=== PATIENT | female | born 1950 | race Caucasian/White ===

== ENCOUNTER 2016-05-15 05:54 | Day surgery (SDC) | payer OTHER ==
[~2016-05-15 05:54] MED LIST: IV START KIT ONE; LACTATED RINGERS 1,000 ML ONE
[2016-05-15] MEDS ORDERED: CEFAZOLIN SODIUM 2 GRAM PREMIX 100 ML IV ONE (06:00)
[2016-05-15] MEDS ORDERED: LIDOCAINE 1% 2 ML VIAL ID PRN (06:00)
[2016-05-15] MEDS ORDERED: LACTATED RINGERS 1,000 ML IV SCH ×2 (06:00→07:45)
[2016-05-15] MEDS ORDERED: CEFAZOLIN SODIUM 2 GRAM DUPLEX 2 G in Premix (D5W) 50 ml 1 EACH IV PRN (06:00)
[2016-05-15] MEDS ORDERED: PROPOFOL 40 ML IV ONE (06:47)
[2016-05-15] MEDS ORDERED: KETAMINE HCL UD SYRINGE 100 MG/2 ML IV ONE (06:47)
[2016-05-15] MEDS ORDERED: MIDAZOLAM HCL 5 MG/5 ML VIAL ONE (06:47)
[2016-05-15] MEDS ORDERED: MORPHINE SULFATE (DURAMORPH) 1 MG/ML 10ML AMP ONE (06:57)
[2016-05-15] MEDS ORDERED: SPINAL PROCEDURAL TRAY 1 EACH ONE (06:59)
[2016-05-15] MEDS ORDERED: BUPIVACAINE 0.75% SPINAL AMPUL 2 ML ONE (06:59)
[2016-05-15] MEDS ORDERED: SULFANILAMIDE 15% CREAM 20 APPLIC/120 G TUBE ONE (07:02)
[2016-05-15] MEDS ORDERED: FENTANYL 100 MCG/2 ML VIAL IV PRN (07:33)
[2016-05-15] MEDS ORDERED: ONDANSETRON 4 MG/2ML 2 ML VIAL IV PRN ×2 (07:33)
[2016-05-15] MEDS ORDERED: NALOXONE HCL 0.4 MG/ML VIAL IV PRN ×2 (07:33→07:34)
[2016-05-15] MEDS ORDERED: ATROPINE SULFATE 0.4 MG/1 ML VIAL IV PRN (07:33)
[2016-05-15] MEDS ORDERED: HYDROMORPHONE HCL 1 MG/ML SYRINGE IV PRN (07:34)
[2016-05-15] MEDS ORDERED: EPHEDRINE SULFATE 50 MG/ML 1ML VIAL IV PRN (07:34)
[2016-05-15] MEDS ORDERED: OXYCODONE/ACETAMINOPHEN 5/325 MG TABLET PO PRN (07:34)
[2016-05-15] MEDS ORDERED: KETOROLAC TROMETHAMINE 30 MG/ML 1 ML VIAL IV PRN (07:34)
[2016-05-15] MEDS ORDERED: EPHEDRINE SULFATE UD SYR 25 MG 25 MG/5 ML SYRINGE IV ONE ×2 (07:39→08:22)
[2016-05-15] MEDS ORDERED: PROPOFOL 20 ML IV ONE (08:30)
[2016-05-15] MEDS ORDERED: KETOROLAC TROMETHAMINE 30 MG/ML 1 ML VIAL ONE (08:32)
[2016-05-15] MEDS ORDERED: ESTROGENS,CONJUGATED CREAM 30 G/TUBE VG ONE (08:33)
[2016-05-15] MEDS ORDERED: BLISTEX LIPSTICK 1 EACH TP PRN (09:27)
[2016-05-15] MEDS ORDERED: MENTHOL/CETYLPYRD 1 EACH LOZENGE PO PRN (09:27)
[2016-05-15] MEDS ORDERED: PROMETHAZINE HCL 25 MG TABLET PO PRN (09:27)
[2016-05-15] MEDS ORDERED: DIPHENHYDRAMINE HCL 50 MG/1 ML VIAL IV PRN (09:27)
[2016-05-15] MEDS ORDERED: MAGNESIUM HYDROXIDE/AL HYDROX 30 ML UDCUP PO PRN (09:27)
[2016-05-15] MEDS ORDERED: MAG HYDROX/AL HYDROX/SIMETH 30 ML UDCUP PO PRN (09:27)
[2016-05-15] MEDS ORDERED: DOCUSATE SODIUM 100 MG CAPSULE PO PRN (09:27)
[2016-05-15 10:05] VITALS: BMI 31.0
[2016-05-15] MEDS ORDERED: PUMP TUBING ONE (10:06)
--- NOTE | 2016-05-15 10:11 | OP ---
Blanca Paola DATE OF SURGERY: 05/15/2016 SURGEON: Justin Gomez M.D. AWNING ERECTOR SURGEON: Dr. Justin Burger. PREOPERATIVE DIAGNOSIS: Uterovaginal prolapse complete. POSTOPERATIVE DIAGNOSIS: Uterovaginal prolapse complete. OPERATION: Vaginal hysterectomy and anterior and posterior colporrhaphy. ANESTHESIA: Spinal. FINDINGS: The cervix was protruding through the vaginal opening. There was a cystocele and rectocele noted. TECHNICAL PROCEDURE: After induction of satisfactory spinal anesthesia the patient was placed in the supine lithotomy position and prepped and draped in the usual fashion. A weighted speculum was placed in the vagina and the cervix grasped with a double tooth tenaculum. The cul-de-sac was entered posteriorly using Marin scissors and the vaginal cuff incised circumferentially at this level using a knife. The bladder was advanced cephalad and the vesicouterine peritoneum identified and incised with the Marin scissors and a [place] retractor placed anteriorly. The left uterosacral ligament was clamped with a Sivakumar clamp, divided, and suture ligated with 0 Vicryl. The same procedure was repeated on the right. The right cardinal ligament was clamped with a Sivakumar clamp, divided, and suture ligated with 0 Vicryl. The same procedure was repeated on the left. The left uterine artery was clamped with a Sivakumar clamp, divided and sutured ligated with 0 Vicryl. The same procedure was repeated on the right. The right uterine artery was clamped with a Sivakumar clamp, divided, and suture ligated with 0 Vicryl. The same procedure was repeated on the left. The left round ligament was clamped with a Sivakumar clamp, divided , and suture ligated with 0 Vicryl. The same procedure was repeated on the right. The uteroovarian ligament and Fallopian tube were then crossed clamped with a Sivakumar and divided. The same procedure was repeated on the left thus removing the uterus. The pedicles thus created were sutured ligated with 0 Vicryl. When hemostasis in the pedicles was assured the peritoneum was closed with a purse string suture of 0 Vicryl. Attention was then turned to the anterior colporrhaphy. The anterior vaginal mucosa was grasped between two Allis forceps and incised in the midline and undermined in the midline to within 4 cm of the distal urethral meatus. The mucosa was from the underlying tissue using sharp and blunt dissection. The pubovesical fascia was then plicated under the bladder using interrupted vertical mattress sutures of 0 Vicryl. The excess vaginal mucosa was trimmed away and the mucosa closed with interrupted simple stitches of 3-0 Vicryl. The vaginal cuff was then closed from side to side using interrupted figure of eight sutures of 0 Vicryl. Attention was then turned to the posterior colporrhaphy. A transverse piece of mucosa was excised from the vaginal fourchette. The posterior vaginal mucosa was then grasped between two Allis forceps and undermined in the midline and incised in the midline to the level of the vaginal cuff. The mucosa from the underlying tissues using sharp and blunt dissection. The levator muscles were then plicated over the rectum using interrupted horizontal mattress sutures of 0 Vicryl. The excess vaginal mucosa was trimmed away. The mucosa was then closed with interrupted simple stitches of 2-0 Vicryl. The perineal body was reconstructed using a simple stitch of 0 Vicryl. The superficial perineal tissues were then closed with a continuous stitch of 3-0 Vicryl and the same suture was used to close the perineal skin in a subcuticular fashion. The instruments were removed from the vagina. A Celis catheter was placed in the bladder noted to drain clear urine. A vaginal pack was placed vaginally and the procedure terminated. The patient tolerated the procedure well and left the operating room awake and in good condition. There were no complications. Instrument, needle, and sponge counts were correct. Estimated blood loss was 100 mL. There was no blood replacement. Specimens removed were the uterus. JOB: [id number]
[2016-05-15] MEDS: D5 1/4NS with 20 mEq KCL 1,000 ML IV SCH ×2 (10:13→17:53)
[2016-05-15] MEDS: ONDANSETRON 4 MG/2ML 2 ML VIAL IV PRN ×2 (14:04→19:52)
[2016-05-15] MEDS: KETOROLAC TROMETHAMINE 30 MG/ML 1 ML VIAL IV SCH ×2 (14:04→19:52)
[2016-05-15] MEDS: ACETAMINOPHEN 325 MG TABLET PO PRN (19:51)
[2016-05-16] MEDS: KETOROLAC TROMETHAMINE 30 MG/ML 1 ML VIAL IV SCH ×4 (00:52→15:31)
[2016-05-16] MEDS: D5 1/4NS with 20 mEq KCL 1,000 ML IV SCH ×3 (00:53→17:52)
[2016-05-16] MEDS: ONDANSETRON 4 MG/2ML 2 ML VIAL IV PRN ×2 (06:03→09:43)
[2016-05-16 06:25] LABS: HEMOGLOBIN 10.5 gm/l (12.0-16.0)
[2016-05-16] MEDS ORDERED: HYDROMORPHONE HCL 1 MG/ML SYRINGE IV PRN (08:57)
[2016-05-16] MEDS ORDERED: OXYCODONE HCL 5 MG TABLET PO PRN (08:57)
--- NOTE | 2016-05-16 09:28 | PDOC43 ---
- Subjective Subjective: Reports Pain Tolerable, Reports Nausea, Reports Vomiting, Denies Shortness of Breath, Denies Fever, Denies Tolerating PO Clear - Objective Vital Signs Temperature 98.4 F 05/16/16 07:50 Pulse Rate 80 05/16/16 07:50 Respiratory Rate 16 05/16/16 07:50 Blood Pressure 119/64 05/16/16 07:50 O2 Saturation by Pulse Oximetry 96 05/16/16 07:50 Oxygen Delivery Method Room Air Oxygen Flow Rate 0 Laboratory 05/16/16 05:30 Active Medication Orders Category Date Time Status Acetaminophen [Tylenol] Med 05/15/16 09:27 Active 325 - 650 mg PO Q4H PRN D5 1/4NS with 20 mEq KCL 1,000 ml Med 05/15/16 09:27 Active IV 125 mls/hr Diphenhydramine HCl [Benadryl] Med 05/15/16 09:27 Active 25 mg IV Q6H PRN Docusate Sodium [Colace] Med 05/15/16 09:27 Active 100 mg PO BID PRN Hydromorphone HCl [Dilaudid] Med 05/16/16 08:57 Active 1 - 2 mg IV Q2H PRN Ketorolac Tromethamine [Toradol] Med 05/15/16 14:30 Active 30 mg IV Q6H Lip [place] [Blistex] Med 05/15/16 09:27 Active 1 each TP PRN PRN Magnesium Hydroxide/Al Hydrox [Maalox] Med 05/15/16 09:27 Active 30 ml PO Q4H PRN Magnesium/Al Hydrox/Simeth [Maalox Plus] Med 05/15/16 09:27 Active 30 ml PO Q4H PRN Menthol/Cetylpyridinium [Cepacol] Med 05/15/16 09:27 Active 1 each PO PRN PRN Ondansetron 4 mg/2ml Vial [Zofran] Med 05/15/16 09:27 Active 4 mg IV Q4H PRN Oxycodone HCl [Roxicodone] Med 05/16/16 08:57 Active 5 - 10 mg PO Q3H PRN Promethazine HCl [Phenergan] Med 05/15/16 09:27 Active 25 mg PO Q6H PRN Sodium Chloride 0.9% Flush [Normal Saline 10ml Flush] Med 05/15/16 09:27 Active 10 - 50 ml IV PRN PRN Sodium Chloride 0.9% Flush [Normal Saline 10ml Flush] Med 05/15/16 17:00 Active 10 ml IV Q8HR Intake and Output 05/14/16 05/15/16 05/16/16 23:59 23:59 23:59 Intake Total 2980 1916 Output Total 1905 2800 Balance 1075 -884 General: Afebrile Abdomen: Soft, Non-Distended, Normal Bowel Sounds Genitourinary: No Indwelling Urinary Cath, No Vaginal Packing Extremities: Full ROM Skin: Normal Color, Warm, Dry, Intact Neurological: Grossly Intact, Alert, Oriented x 4 Psych/Mental Status: Normal Affect, Normal Mood - Disposition: Disposition: Stable (Will try to discharge later today if a nd when patient can tolerate diet.)
[2016-05-16] MEDS: ACETAMINOPHEN 325 MG TABLET PO PRN ×2 (15:05→19:19)
--- NOTE | 2016-05-16 18:52 | PDOC36 ---
Provider Note Note: Pt tolerated dinner, no nausea / vomiting. Pain controlled. Abdomen soft, nontender, nondistended. OK for discharge today; rx percocet, motrin, dulcolax f/u 2w with Dr. Gomez
[2016-05-16 19:26] VITALS: BP 132/78
--- NOTE | 2016-05-19 13:26 | SURGPATH ---
[facility] [address] [place] [id number] Patient Name: LINDSEY BERTRAND MR#: [id number] : 1950 Gender: F Specimen #: [id number] Collected: 05/15/2016 Received: 05/18/2016 Reported: 05/19/2016 Submitting Phys: CORRINE FORD Copy To Phys: KATHLEEN L[facility] Clinical History / Pre-Operative Diagnosis: Complete uterovaginal prolapse Specimen Source / Surgical Procedure Performed: Uterus Interpretation: UTERUS, HYSTERECTOMY: - ENDOMETRIUM: CYSTIC ATROPHY - MYOMETRIUM: ADENOMYOSIS - CERVIX: NO PATHOLOGIC DIAGNOSIS Electronically Signed Out Jimenez Smith M.D. Gross Description: The specimen is received in formalin labeled with the patient's name and "uterus". The specimen consists of a 7.5 x 4.0 x 3.0 cm, 70 g uterus with attached 5 cm cervix. The serosa is smooth. The endometrium is brown and faintly granular and 0.1 cm or flat. [employer] tissue is submitted. A. posterior B. anterior ANDER Ibarra Microscopic Description: Sections of cervix are unremarkable. The endometrium shows cystic atrophy. Focally adenomyosis is present in the myometrium. 1: [id number] N80.0
== END 2016-05-16 19:50 | disposition home or self-care (01) ==
LOC: SDC 05:54 → MS 09:53 → SDC 05-16 19:50
PROVIDERS: ATTEND Obstetrics & Gynecology
PROC: 0JQC0ZZ Repair Pelvic Region Subcutaneous Tissue and Fascia, Open Approach (ICD-10-PCS; principal; 2016-05-15)
PROC: 0UT97ZZ Resection of Uterus, Via Natural or Artificial Opening (ICD-10-PCS; principal; 2016-05-15)
PROC: 0UTC7ZZ Resection of Cervix, Via Natural or Artificial Opening (ICD-10-PCS; principal; 2016-05-15)
DX: N81.3 Complete uterovaginal prolapse (principal)
CPT/HCPCS: 85014; 85018; 36415; 58260; 57260; J2274; A9270 ×4; J1885 ×6; J2250; J2405 ×5; J7120; J0690